=== PATIENT | female | born 1950 | race Caucasian/White ===

== ENCOUNTER → 2020-09-07 15:53 | Outpatient (CLI) | payer MEDICARE, OTHER, SELFPAY ==
--- NOTE | 2020-09-07 15:59 | MRI_ITS ---
STUDY: MRI LUMBAR SPINE WITHOUT CONTRAST REASON FOR EXAM: Female, 70 years old. Low back pain, right leg pain radiation TECHNIQUE: Standardized fat and water weighted pulse sequences were obtained in the sagittal and axial planes. COMPARISON: None FINDINGS: There is grade 1 degenerative anterolisthesis of L3 on L4, 2 mm and L4 on L5, 5 mm. Remainder of the spine is aligned. Marrow, paraspinous soft tissues and SI joints are unremarkable. Conus medullaris terminates at L1-L2. Cauda equina is restricted at L3-L4 and L4-L5. T11-T12: Normal minimally degenerated endplates. Normal disc height, hydration and mild disc degeneration. Normal bilateral facet joints. Normal central canal and bilateral lateral recesses. Normal bilateral intervertebral neural foramina. T12-L1: Normal endplates. Normal disc height, hydration and morphology. Normal bilateral facet joints. Normal central canal and bilateral lateral recesses. Normal bilateral intervertebral neural foramina. Normal lumbar lordosis. There is no substantial scoliosis. L1-2: Normal endplates. Normal disc height, hydration and minor global degeneration and bulging. Normal bilateral facet joints. Normal central canal and bilateral lateral recesses. Normal bilateral intervertebral neural foramina. L2-3: Normal endplates. Normal disc height, hydration and minor global degeneration and bulging. Normal bilateral facet joints. Normal central canal and bilateral lateral recesses. Normal bilateral intervertebral neural foramina. L3-4: Normal endplates. Normal disc height, hydration and mild global degeneration and bulging.. Facet joints are degenerated bilaterally. Ligamentum flavum is thickened bilaterally.. There is mild sclerotic thecal sac stenosis and mild bilateral foraminal stenosis. Lateral recesses are patent. L4-5: Normal endplates. Normal disc height, hydration with mild broad disc and covering. Facet joints are moderately degenerated bilaterally. Ligamentum flavum is a concern. Thecal sac is severely stenotic. Lateral recesses are bilaterally stenotic. There is moderate bilateral foraminal stenosis. L5-S1: Normal endplates. Normal disc height, hydration and morphology. Normal bilateral facet joints. Normal central canal and bilateral lateral recesses. Normal bilateral intervertebral neural foramina. MRI/Spine Lumbar (Routine) IMPRESSION: 1. Severe spondylotic L4-L5 thecal sac stenosis. Neurosurgical consultation is advised. 2. Multilevel mild spondylotic malalignment. Electronically Signed: Tarsha Albert, at 17:16 EST Tel , Service support ,
== END ==
PROVIDERS: PCP Physician Assistant Medical; Referring Provider Physician Assistant Medical; Visit Provider Physician Assistant Medical
DX: M54.5 Low back pain (principal); M79.604 Pain in right leg
CPT/HCPCS: 72148

== ENCOUNTER → 2020-10-08 09:58 | Outpatient (CLI) | payer MEDICARE, OTHER, SELFPAY ==
--- NOTE | 2020-10-08 10:48 | NEURO_ITS ---
NCS and/or EMG Patient Report Ordering Doctor: Zahira Cochran DATE OF SERVICE: 10/08/20 Indication: Intermittent numbness and tingling in both hands. Symptoms are much more pronounced on the left side (patient is left handed). Evaluate for median neuropathy at the wrist. Findings: Nerve conduction studies were performed in the right and left upper extremities. The right median motor study recording the abductor pollicis brevis showed a normal amplitude, normal distal latency and normal conduction velocity. The right ulnar motor study recording the abductor digiti minimi showed a normal amplitude, normal distal latency and normal conduction velocity. No conduction block or focal slowing was present across the elbow. The right median sensory response recording digit two showed a normal amplitude, prolonged latency and borderline conduction velocity. The right ulnar sensory response recording digit five showed a normal amplitude, latency and conduction velocity. The right radial sensory response recording over the extensor snuff box showed a normal amplitude, latency and conduction velocity. Right median- ulnar lumbrical / interosseous motor latencies showed a normal median latency compared to the ulnar. The left median motor study recording the abductor pollicis brevis showed a normal amplitude and normal distal latency. The left median sensory response recording digit two showed a normal amplitude, latency and conduction velocity. Needle EMG of the right upper extremity and cervical paraspinal muscles was performed. No denervation was seen in any muscle. All motor unit morphology, activation and recruitment patterns were normal. Impression: This is a borderline study. There is electrophysiologic evidence suggestive, but not diagnostic of, median neuropathy across the left wrist. There is no electrophysiologic evidence of cervical radiculopathy in the right upper extremity. Please note: electrodiagnostic testing is appropriately 95% sensitive in detecting median neuropathy across the wrist. However, 5% of patients will have a false negative study. Presumably, in these patients, intermittent compression results in pain and paresthesias from ischemia, but without any fixed demyelination or axonal loss that can be demonstrated on electrodiagnostic studies. Thus, clinical correlation is required in the interpretation of this borderline study. Lastly, there is no electrophysiologic evidence of median neuropathy across the wrist in the right upper extremity. Delbert Pat D.O.
== END ==
PROVIDERS: PCP Physician Assistant Medical; Referring Provider Physician Assistant Medical; Visit Provider Physician Assistant Medical
DX: R20.0 Anesthesia of skin (principal); R20.2 Paresthesia of skin; M54.5 Low back pain; M54.10 Radiculopathy, site unspecified
CPT/HCPCS: 95886; 95910

== ENCOUNTER → 2020-10-22 10:11 | Outpatient (CLI) | payer MEDICARE, OTHER, SELFPAY ==
--- NOTE | 2020-10-22 11:18 | NEURO ---
NCS and/or EMG Patient Report Ordering Doctor: Zahira Cochran DATE OF SERVICE: 10/22/20 Indication: Intermittent pain radiating down the left lower extremity. Study ordered bilaterally, however, patient declines to have the right side examined. Findings: Nerve conduction studies were performed in the right and left lower extremity. The left peroneal motor study recording the extensor digitorum brevis showed a normal amplitude, normal distal latency and normal conduction velocity. No conduction block or focal slowing was present across the fibular neck. The left tibial motor study recording the abductor hallucis brevis showed a normal amplitude, normal distal latency and normal conduction velocity. Left sural sensory response showed a normal amplitude and conduction velocity. Left superficial peroneal sensory response showed a normal amplitude and conduction velocity. Needle EMG of the left lower extremity and lumbar paraspinal muscles was performed. No denervation was present in any muscle. All motor unit morphology, activation and recruitment patterns were normal. Impression: This is a normal study. There is no electrophysiologic evidence of lumbosacral radiculopathy, plexopathy, or peripheral neuropathy of either the left lower extremity. Please note: the electrodiagnosis of radiculopathy is made on the basis of excluding peripheral nerve lesions on nerve conduction studies and the needle EMG demonstrating denervation and/or reinnervation in the distribution of one or more nerve roots (i.e., acute and/or chronic axonal loss). Thus, electrodiagnostic studies are insensitive in detecting radiculopathy in the absence of axonal loss (e.g., in the setting of compression resulting in intermittent ischemia or mechanical deformation; or demyelination without axonal loss). Thus, clinical correlation is required in the interpretation of this negative electrodiagnostic study for radiculopathy. Delbert Pat D.O.
== END ==
PROVIDERS: PCP Physician Assistant Medical; Referring Provider Physician Assistant Medical; Visit Provider Physician Assistant Medical
DX: R20.0 Anesthesia of skin (principal); M54.5 Low back pain
CPT/HCPCS: 95886; 95908

== ENCOUNTER → 2021-03-12 14:23 | Outpatient (CLI) | payer MEDICARE, OTHER, SELFPAY ==
--- NOTE | 2021-03-12 15:09 | PET_ITS ---
EXAMINATION: FDG PET/CT INDICATIONS: A 70-year-old female with history of pulmonary nodularity. COMPARISON EXAMINATION: CT of the chest report dated 02/27/21 NON-INDEX LESION SIZE SUV INTERPRETATION Mediastinum, right thoracic perihilum 2.0 (max) Quantitative criteria for viable neoplasm are not fulfilled TECHNIQUE: Following the intravenous administration of 14.8 mCi of F-18 deoxyglucose via the right antecubital fossa, multiplanar image acquisitions of the neck, chest, abdomen and pelvis to level of mid thigh, obtained at one hour post radiopharmaceutical administration contemporaneously interpreted with the current CT of the neck, chest, abdomen and pelvis to level of mid thigh, dated 03/12/[address] of the chest report dated 02/27/21 reveal: SERUM GLUCOSE LEVEL: 77 mg/dl. HEIGHT: 69 inches. WEIGHT: 150 lbs. FINDINGS: 1. There is mild increased glucose metabolism identified in the carinal level mediastinum and right thoracic perihilum generating a calculated maximal standard uptake value of 2.0. 2. Normal physiologic distribution of the radiopharmaceutical is apparent in the hepatic (2.7) and splenic parenchyma, both renal units, bladder and visualized intestinal tract. The visualized portion of the cerebral cortical-subcortical structures demonstrate symmetric and preserved glucose metabolism. Diffuse radiopharmaceutical concentration is noted in all four quadrants of the abdomen and pelvis. Pertinent CT findings are as follows: CHEST: A non-calcified density defined in the right upper posteromedial lung-right upper lobe is ametabolic. There is atherosclerotic calcification defined in the thoracic aorta without evidence of dilatation-aneurysm formation. Coronary arterial calcification is observed. Bilateral axillary soft tissue densities with fatty hilus are ametabolic. Calcified and non-calcified mediastinal and thoracic perihilar soft tissue is non-glucose avid. There are no parenchymal densities-nodules defined in the right and left hemithorax with discernible quantitatively significant increased glucose concentration. A pleural-based density noted in the right upper lateral lung field is non-glucose avid. ABDOMEN AND PELVIS: The gallbladder is surgically absent. There is atherosclerotic calcification defined in the abdominal aorta without evidence of dilatation-aneurysm formation. Abdominal-pelvic arterial calcification is defined. Colonic diverticulosis is noted without evidence of diverticulitis. A fat containing ventral hernia is noted. Calcification is observed in the region of the right adnexa without evidence of increased tracer uptake. SKELETAL: Degenerative changes are noted in the cervical, thoracic and lumbar spine without evidence of increased radiopharmaceutical concentration. PET/PET/CT Tumor Base -Thigh Init IMPRESSION: 1. NEGATIVE EXAMINATION. There is no quantitative scintigraphic evidence of abnormal increased glucose metabolism within the context of the right upper medial lung-right upper lobe to correlate with structural changes noted on review of CT of the thorax dated 03/12/21. 2. Anatomic stability may be ensured in the nonglucose avid right upper lobe parenchymal density with repeat CT of the thorax in 3-6 months. (Antwon, Seminars in Thoracic and Cardiovascular Surgery 14:292, 2002). 3. Facilitated radiopharmaceutical concentration observed in the carinal level mediastinum, right thoracic perihilum does not fulfill quantitative criteria for viable neoplasm. (Bunny stokes al, Journal of Clinical Oncology 16:2142, 1998). Electronic Signature Joel Wilkinson D.O. Accurate Quantification of SUVs for this report are calculated using the exclusive [employer]? Technology.??Exclusive [place] Patent [employer]? Technology ([place] Patent No. [id number]). Electronically Signed: Joel Wilkinson DO at 9:37 EDT Tel , Service support ,
== END ==
PROVIDERS: PCP Physician Assistant Medical; Referring Provider Physician Assistant Medical; Visit Provider Physician Assistant Medical
DX: R91.1 Solitary pulmonary nodule (principal)
CPT/HCPCS: 78815; A9552